=== PATIENT | female | born 2000 | race Caucasian/White ===

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

== ENCOUNTER 2023-03-27 09:49 | Emergency (ER) | payer MEDICAID ==
[~2023-03-27] VITALS: Ht 160 cm; Wt 50.0 kg
[~2023-03-27 09:49] MED LIST: LURA20TA8 PO
[2023-03-27 09:55] VITALS: TEMP 97.9
[2023-03-27 11:23] VITALS: BP 109/72; PULSE 66; RESP 18; O2SAT 96
== END 2023-03-27 11:25 | disposition home or self-care (01) ==
LOC: ER 09:49
DX: B34.9 Viral infection, unspecified (principal); Z20.822 Contact with and (suspected) exposure to COVID-19; L98.9 Disorder of the skin and subcutaneous tissue, unspecified; F12.90 Cannabis use, unspecified, uncomplicated; Z79.899 Other long term (current) drug therapy
CPT/HCPCS: 36415; 87081; 87502; 87503; 87811; 99283